=== PATIENT | male | born 1990 | race Caucasian/White ===

== ENCOUNTER 2017-07-24 08:25 | Observation (INO) | payer BC ==
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
--- NOTE | 2017-07-24 09:03 | CT ---
EXAMINATION: CT cervical spine HISTORY: Pain COMPARISON: None TECHNIQUE: Axial CT images obtained through the cervical spine without contrast. Coronal and sagittal reconstructions obtained. FINDINGS: The cervical spinal alignment is normal. The vertebral body heights and disc spaces appear well-maintained. There is no fracture or acute osseous abnormality. Bone mineralization is normal. Pa ravertebral soft tissues are normal. The lung apices are clear. IMPRESSION: 1. No acute cervical spinal abnormality.
--- NOTE | 2017-07-24 09:03 | CT ---
EXAMINATION: Non contrast CT head. Coronal and sagittal reformats. HISTORY: Pain FINDINGS: No evidence of intra or extra axial hemorrhage, mass, midline shift, hydrocephalus or edema. No hypoattenuation changes in the major vascular territories to suggest acute infarct. No abnormal intracranial calcifications are detected. No evidence of substantial vascular calcificat ions. Trace mucosal thickening within the right maxillary sinus. Orbits and globes are symmetric. Pituitary fossa appears unremarkable. Calvarium is intact. No evidence of skull fracture. IMPRESSION: No acute intracranial findings.
[2017-07-24] MEDS ORDERED: Iopamidol 755 MG/ML 500 ML Multipack Bottle IVPUSH STA (09:06)
[2017-07-24 09:09] LABS: CHLORIDE,CL 106 mmol/L (98-107); SODIUM,NA 135 mmol/L (136-148)
--- NOTE | 2017-07-24 09:12 | CT ---
CT of the chest, abdomen and pelvis with contrast. HISTORY: Pain TECHNIQUE: Axial CT images were obtained of the chest, abdomen and pelvis following administration of 100 mL of Isovue-370 in left antecubital fossa without complication. Coronal and sagittal reconstruc tions obtained. FINDINGS: Chest: The lungs are clear without focal consolidation. No pleural effusion or pneumothorax. Tiny ple ural-based nodule measuring 4 mm in the right lung base, likely benign given the patient's age. Mild dependent atelectasis. The heart is normal in size without a pericardial effusion. No mediastinal or hilar lymphadenopathy. Central airways are clear. No axillary lymphadenopathy. No mediastinal hematom a. Thoracic aorta is normal in caliber. Abdomen: The liver, spleen, adrenal glands, and pancreas appear normal. The gallbladder is normal. No bulky retroperitoneal lymphadenopathy or abdominal ascites. The kidneys enhance and function symmetrically without evidence of obstructive uropathy. Pelvis: The large and small bowel are normal in caliber without evidence of obstruction. Trace fluid within the left pericolic gutter. The appendix is normal. The urinary bladder is normal. Otherwise no free pelvic fluid or pelvic lymphadenopathy. Minimal wedging of lower thoracic vertebral bodies, likely congenital. No acute osseous abnormality i dentified. IMPRESSION: 1. Trace fluid within the left pericolic cutter otherwise no acute findings within the chest, abdomen , or pelvis.
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
[2017-07-24] MEDS ORDERED: Diphtheria,Pertussis(Acell),Tetanus Vaccine 0.5 ML Syringe IM ONE (10:27)
[2017-07-24] MEDS ORDERED: Ketorolac 30 MG/ML SDV IVPUSH ONE (10:27)
[2017-07-24] MEDS ORDERED: Ondansetron 4 MG/2 ML SDV IVPUSH ONE (10:27)
[2017-07-24 10:44] LABS: CHLORIDE,CL 104 mmol/L (98-107); SODIUM,NA 136 mmol/L (136-148)
[2017-07-24] MEDS ORDERED: Sodium Chloride 0.9% 1,000 ML IV SCH ×2 (11:45→12:15)
[2017-07-24] MEDS ORDERED: Ondansetron 4 MG/2 ML SDV IVPUSH PRN (12:09)
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
[2017-07-24] MEDS: Bacitracin Oint 28.35 GM Tube TOP SCH ×2 (14:37→21:21)
[2017-07-24] MEDS ORDERED: traMADol 50 MG Tab PO PRN (21:08)
[2017-07-24] MEDS: Acetaminophen 325 MG Tab PO PRN (21:22)
[2017-07-25] MEDS: Bacitracin Oint 28.35 GM Tube TOP SCH ×2 (05:41→13:59)
[2017-07-25 06:17] LABS: CHLORIDE,CL 110 mmol/L (98-107); SODIUM,NA 142 mmol/L (136-148)
--- NOTE | 2017-07-25 14:47 | MR ---
EXAMINATION: MRI abdomen with and without contrast HISTORY: Hyperbilirubinemia COMPARISON: CT from the day prior TECHNIQUE: Multiplanar and multisequence imaging obtained through the abdomen before and following th e administration of 20 mL of MultiHance. MRCP protocol was used. FINDINGS: The adrenal glands, spleen, and liver appear normal. The gallbladder is normal. The common bile duct and pancreatic ducts are normal. The pancreas is unremarkable. No bulky retroperitoneal lym phadenopathy or abdominal ascites. The kidneys enhance and function symmetrically without evidence of obstructive uropathy. The visualized large and small bowel are normal in caliber without evidence of obstruction. No abnorm al bone marrow signal. IMPRESSION: 1. No acute findings noted within the abdomen.
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
[2017-07-25] MEDS: Acetaminophen 325 MG Tab PO PRN (15:21)
== END 2017-07-25 17:30 | disposition home or self-care (01) ==
LOC: MW.ED 08:25 → MW.ICU 11:20
PROVIDERS: ADMIT Surgery; ATTEND Surgery
DX: S06.0X9A Concussion with loss of consciousness of unspecified duration, initial encounter (principal); T14.8XXA Other injury of unspecified body region, initial encounter; R51 Headache; R11.0 Nausea; V89.2XXA Person injured in unspecified motor-vehicle accident, traffic, initial encounter; Z88.1 Allergy status to other antibiotic agents
CPT/HCPCS: 36415; 70450; 71045; 71260; 72125; 72170; 74177; 74183; 80053; 80305; 81001; 82247; 82248; 82550; 82553; 82962; 84484; 85025; 85027; 85610; 86850; 86900; 86901; 90471; 90715; 93005; 96374; 99285; A9270; G0390; G0480; J1885; J7040; Q9967; 96360; 96361; 99284; G0378